=== PATIENT | male | born 1980 | race Caucasian/White ===

== ENCOUNTER → 2016-12-30 | Outpatient (CLI) | payer OTHER, MEDICAID ==
[2016-12-30 08:23] LABS: CHLORIDE,CL 104 mmol/L (98-110); SODIUM,NA 140 mmol/L (136-146)
== END ==
LOC: MW.CHFP 07:31
PROVIDERS: ATTEND Student in an Organized Health Care Education/Training Program
DX: Z00.00 Encounter for general adult medical examination without abnormal findings (principal); G40.909 Epilepsy, unspecified, not intractable, without status epilepticus
CPT/HCPCS: 36415; 80053; 80061; 80156

== ENCOUNTER 2023-01-01 15:04 | Inpatient (IN) | payer MEDICARE, MEDICAID ==
[2023-01-01] MEDS ORDERED: cefTRIAXone 1 GM in Sodium Chloride 0.9% 50 ML IV ONE (15:09)
[2023-01-01] MEDS ORDERED: Sodium Chloride 0.9% 1,000 ML IV SCH (15:15)
[2023-01-01 15:40] LABS: HEMATOCRIT 45.5 % (38.0-50.0); MEAN CORPUSCULAR HEMOGLOBIN 31.3 pg (27.0-32.0); MEAN CORPUSCULAR HGB CONC 35.2 g/dL (31.0-37.0); MEAN CORPUSCULAR VOLUME 88.9 fL (80.0-98.0); NRBC ABSOLUTE 0 K/uL; PLATELET COUNT,PLT 261 K/uL (150-400); RED BLOOD CELL COUNT 5.12 M/uL (4.50-5.90); WHITE BLOOD CELL COUNT,WBC 28.52 K/uL (4.0-11.0)
[2023-01-01 16:03] LABS: BAND ABSOLUTE MAN 0.6; BAND PERCENT MAN 2 %; LYMPHOCYTES ABSOLUTE MAN 1.4 (0.6-2.4); LYMPHOCYTES PERCENT MAN 5 % (16.0-40.0); MONOCYTES ABSOLUTE MAN 2.9 (0.0-0.8); MONOCYTES PERCENT MAN 10 % (0.0-15.0); SEG NEUTROPHILS ABSOLUTE MAN 23.7 (1.4-5.7); SEG NEUTROPHILS PERCENT MAN 83 % (48.0-80.0)
[2023-01-01 16:08] LABS: A/G RATIO 0.7 (0.9-1.6); ALANINE AMINOTRANSFERASE,ALT 46 IU/L (14-63); ALBUMIN 3.3 g/dL (3.4-5.0); ALKALINE PHOSPHATASE 163 U/L (46-116); ASPARTATE AMNIOTRANSFERASE,AST 35 IU/L (15-37); BILIRUBIN TOTAL 1.2 mg/dL (0.2-1.0); BLOOD UREA NITROGEN,BUN 20 mg/dL (7.0-18.0); CALCIUM 8.8 mg/dL (8.5-10.1); CARBON DIOXIDE,CO2 26.7 mmol/L (21.0-32.0); CHLORIDE,CL 97 mmol/L (98-107); CREATININE 1.5 mg/dL (0.8-1.3); GLUCOSE RANDOM 118 mg/dL (74-106); POTASSIUM,K 3.9 mmol/L (3.5-5.1); PROTEIN TOTAL,TP 8.2 g/dL (6.4-8.2); SODIUM,NA 136 mmol/L (136-148)
[2023-01-01 16:10] LABS: ESTIMATED GFR 59 mL/min (>60)
[2023-01-01 16:16] LABS: LACTIC ACID 1.6 mmol/L (0.4-2.0)
[2023-01-01] MEDS ORDERED: fentaNYL 100 MCG/2 ML SDV ONE (18:05)
[2023-01-01] MEDS ORDERED: Iopamidol 755 MG/ML 500 ML Multipack Bottle IVPUSH ONE (18:28)
[2023-01-01] MEDS ORDERED: Sodium Chloride 0.9% 1,000 ML IV ONE (18:40)
[2023-01-01] MEDS ORDERED: carBAMazepine 100 MG Tab.Chew PO ONE (19:06)
[2023-01-01] MEDS: Enoxaparin 40 MG/0.4 ML Syringe SUBCUT SCH (19:06)
[2023-01-01] MEDS: carBAMazepine 100 MG Tab.Chew PO SCH (22:31)
[2023-01-02] MEDS ORDERED: Sodium Chloride 0.9% 500 ML IV ONE (00:23)
[2023-01-02] MEDS: Acetaminophen 500 MG Tab PO PRN ×2 (00:35→13:42)
[2023-01-02] MEDS: Sodium Chloride 0.9% 1,000 ML IV SCH ×2 (00:35→11:24)
[2023-01-02 06:12] LABS: COLOR,URINE YELLOW; GLUCOSE,URINE NEGATIVE (NEGATIVE); KETONES,URINE 15 mg/dL (NEGATIVE); LEUKOCYTE ESTERASE,URINE NEGATIVE (NEGATIVE); NITRITE,URINE NEGATIVE (NEGATIVE); OCCULT BLOOD,URINE NEGATIVE (NEGATIVE); PH,URINE 5.5 (5.0-8.0); PROTEIN,URINE 30 mg/dL (NEGATIVE)
[2023-01-02 06:15] LABS: APPEARANCE,URINE HAZY; BILIRUBIN,URINE SMALL (NEGATIVE)
[2023-01-02 06:27] LABS: BASOPHILS PERCENT AUTO 0.1 % (0.0-1.5); EOSINOPHILS ABSOLUTE AUTO 0.1 K/uL (0.0-0.7); EOSINOPHILS PERCENT AUTO 0.3 % (0.0-7.0); HEMATOCRIT 38.2 % (38.0-50.0); LYMPHOCYTES ABSOLUTE AUTO 2.3 K/uL (0.6-2.4); LYMPHOCYTES PERCENT AUTO 10.7 % (16.0-40.0); MEAN CORPUSCULAR HEMOGLOBIN 30.6 pg (27.0-32.0); MEAN CORPUSCULAR VOLUME 89.9 fL (80.0-98.0); MONOCYTES ABSOLUTE AUTO 2.1 K/uL (0.0-0.8); MONOCYTES PERCENT AUTO 9.9 % (0.0-15.0); NEUTROPHILS ABSOLUTE AUTO 16.8 K/uL (1.4-5.7); NRBC ABSOLUTE 0 K/uL; PLATELET COUNT,PLT 199 K/uL (150-400); RED BLOOD CELL COUNT 4.25 M/uL (4.50-5.90); WHITE BLOOD CELL COUNT,WBC 21.28 K/uL (4.0-11.0)
[2023-01-02] MEDS: carBAMazepine 100 MG Tab.Chew PO SCH ×4 (06:30→20:04)
[2023-01-02 06:46] LABS: CALCIUM 7.6 mg/dL (8.5-10.1); CARBON DIOXIDE,CO2 27.4 mmol/L (21.0-32.0); CREATININE 1.2 mg/dL (0.8-1.3); EST CRCL DRUG DOSING (CG) 61.93 mL/min; POTASSIUM,K 3.6 mmol/L (3.5-5.1)
[2023-01-02 06:48] LABS: AMORPHOUS SEDIMENT,URINE FEW (NEGATIVE); RBC,URINE 0-1 (0-2/HPF); WBC,URINE 0-3 (0-5/HPF)
[2023-01-02] MEDS ORDERED: Calcium Gluconate 10% 1 GM/10 ML SDV IVPUSH ONE (07:01)
[2023-01-02] MEDS ORDERED: Calcium Gluconate 1 GM in Sodium Chloride 0.9% 100 ML IV ONE (07:30)
[2023-01-02] MEDS ORDERED: Pantoprazole 40 MG Tab.CR PO SCH (09:00)
[2023-01-02] MEDS: Pantoprazole 40 MG in Sodium Chloride 0.9% 10 ML IVPUSH SCH (09:43)
[2023-01-02] MEDS: cefTRIAXone 1 GM in Sodium Chloride 0.9% 50 ML IV SCH (16:06)
[2023-01-02] MEDS: Enoxaparin 40 MG/0.4 ML Syringe SUBCUT SCH (18:16)
[2023-01-03] MEDS: Sodium Chloride 0.9% 1,000 ML IV SCH (00:10)
[2023-01-03 06:01] LABS: BASOPHILS PERCENT AUTO 0.2 % (0.0-1.5); EOSINOPHILS ABSOLUTE AUTO 0.2 K/uL (0.0-0.7); EOSINOPHILS PERCENT AUTO 1.1 % (0.0-7.0); HEMATOCRIT 34.5 % (38.0-50.0); HEMOGLOBIN 11.6 g/dL (13.0-17.0); LYMPHOCYTES ABSOLUTE AUTO 2.4 K/uL (0.6-2.4); LYMPHOCYTES PERCENT AUTO 14.2 % (16.0-40.0); MEAN CORPUSCULAR HEMOGLOBIN 30.3 pg (27.0-32.0); MEAN CORPUSCULAR HGB CONC 33.6 g/dL (31.0-37.0); MEAN CORPUSCULAR VOLUME 90.1 fL (80.0-98.0); MONOCYTES ABSOLUTE AUTO 1.3 K/uL (0.0-0.8); MONOCYTES PERCENT AUTO 7.4 % (0.0-15.0); NEUTROPHILS ABSOLUTE AUTO 13.1 K/uL (1.4-5.7); NEUTROPHILS PERCENT AUTO 77.1 % (48.0-80.0); NRBC ABSOLUTE 0 K/uL; PLATELET COUNT,PLT 207 K/uL (150-400); RED BLOOD CELL COUNT 3.83 M/uL (4.50-5.90); WHITE BLOOD CELL COUNT,WBC 17.06 K/uL (4.0-11.0)
[2023-01-03 06:21] LABS: CALCIUM 7.7 mg/dL (8.5-10.1); CARBON DIOXIDE,CO2 24.8 mmol/L (21.0-32.0); CREATININE 0.9 mg/dL (0.8-1.3); EST CRCL DRUG DOSING (CG) 82.57 mL/min; POTASSIUM,K 3.5 mmol/L (3.5-5.1)
[2023-01-03] MEDS: carBAMazepine 100 MG Tab.Chew PO SCH ×3 (09:05→20:13)
[2023-01-03] MEDS: Pantoprazole 40 MG in Sodium Chloride 0.9% 10 ML IVPUSH SCH (09:07)
[2023-01-03] MEDS: VANCOmycin 1.75 GM/350 ML 1.75 GM in Premix Bag 1 BAG IV SCH (14:00)
[2023-01-03] MEDS: cefTRIAXone 1 GM in Sodium Chloride 0.9% 50 ML IV SCH (16:15)
[2023-01-03] MEDS: Enoxaparin 40 MG/0.4 ML Syringe SUBCUT SCH (17:53)
[2023-01-04] MEDS: VANCOmycin 1.75 GM/350 ML 1.75 GM in Premix Bag 1 BAG IV SCH (02:54)
[2023-01-04 05:56] LABS: HEMOGLOBIN 11.6 g/dL (13.0-17.0); MEAN CORPUSCULAR HEMOGLOBIN 30.1 pg (27.0-32.0); MEAN CORPUSCULAR HGB CONC 33.1 g/dL (31.0-37.0); MEAN CORPUSCULAR VOLUME 90.7 fL (80.0-98.0); MEAN PLATELET VOLUME 10.4 fL (7.40-12.00); RED BLOOD CELL COUNT 3.86 M/uL (4.50-5.90); WHITE BLOOD CELL COUNT,WBC 12.73 K/uL (4.0-11.0)
[2023-01-04] MEDS: Pantoprazole 40 MG in Sodium Chloride 0.9% 10 ML IVPUSH SCH (08:34)
[2023-01-04] MEDS: carBAMazepine 100 MG Tab.Chew PO SCH ×3 (08:35→20:10)
[2023-01-04] MEDS: VANCOmycin 1.5 GM/300 ML 1.5 GM in Premix Bag 1 BAG IV SCH (14:06)
[2023-01-04] MEDS: cefTRIAXone 1 GM in Sodium Chloride 0.9% 50 ML IV SCH (16:15)
[2023-01-04] MEDS: Enoxaparin 40 MG/0.4 ML Syringe SUBCUT SCH (18:39)
[2023-01-05] MEDS: VANCOmycin 1.5 GM/300 ML 1.5 GM in Premix Bag 1 BAG IV SCH ×2 (02:04→15:11)
[2023-01-05 05:50] LABS: BASOPHILS PERCENT AUTO 0.3 % (0.0-1.5); EOSINOPHILS ABSOLUTE AUTO 0.4 K/uL (0.0-0.7); EOSINOPHILS PERCENT AUTO 4.3 % (0.0-7.0); HEMATOCRIT 38.3 % (38.0-50.0); HEMOGLOBIN 12.7 g/dL (13.0-17.0); LYMPHOCYTES PERCENT AUTO 19.4 % (16.0-40.0); MEAN CORPUSCULAR HEMOGLOBIN 29.9 pg (27.0-32.0); MEAN CORPUSCULAR HGB CONC 33.2 g/dL (31.0-37.0); MEAN CORPUSCULAR VOLUME 90.1 fL (80.0-98.0); MONOCYTES ABSOLUTE AUTO 0.8 K/uL (0.0-0.8); MONOCYTES PERCENT AUTO 7.7 % (0.0-15.0); NEUTROPHILS PERCENT AUTO 68.3 % (48.0-80.0); NRBC ABSOLUTE 0 K/uL; PLATELET COUNT,PLT 317 K/uL (150-400); RED BLOOD CELL COUNT 4.25 M/uL (4.50-5.90); WHITE BLOOD CELL COUNT,WBC 10.17 K/uL (4.0-11.0)
[2023-01-05 06:11] LABS: CALCIUM 8.2 mg/dL (8.5-10.1); CARBON DIOXIDE,CO2 28.2 mmol/L (21.0-32.0); CREATININE 0.8 mg/dL (0.8-1.3); EST CRCL DRUG DOSING (CG) 92.9 mL/min; POTASSIUM,K 3.7 mmol/L (3.5-5.1)
[2023-01-05] MEDS: carBAMazepine 100 MG Tab.Chew PO SCH ×3 (08:22→19:47)
[2023-01-05] MEDS: Pantoprazole 40 MG in Sodium Chloride 0.9% 10 ML IVPUSH SCH (08:22)
[2023-01-05] MEDS: cefTRIAXone 1 GM in Sodium Chloride 0.9% 50 ML IV SCH ×2 (17:33→17:34)
[2023-01-05] MEDS: Enoxaparin 40 MG/0.4 ML Syringe SUBCUT SCH (18:30)
[2023-01-06] MEDS: VANCOmycin 1.5 GM/300 ML 1.5 GM in Premix Bag 1 BAG IV SCH ×2 (02:11→14:40)
[2023-01-06 05:47] LABS: BASOPHILS PERCENT AUTO 0.3 % (0.0-1.5); EOSINOPHILS ABSOLUTE AUTO 0.4 K/uL (0.0-0.7); EOSINOPHILS PERCENT AUTO 4.2 % (0.0-7.0); HEMATOCRIT 39.7 % (38.0-50.0); HEMOGLOBIN 13.3 g/dL (13.0-17.0); LYMPHOCYTES ABSOLUTE AUTO 1.8 K/uL (0.6-2.4); LYMPHOCYTES PERCENT AUTO 19.5 % (16.0-40.0); MEAN CORPUSCULAR HEMOGLOBIN 30.4 pg (27.0-32.0); MEAN CORPUSCULAR HGB CONC 33.5 g/dL (31.0-37.0); MEAN CORPUSCULAR VOLUME 90.8 fL (80.0-98.0); MONOCYTES PERCENT AUTO 11.5 % (0.0-15.0); NEUTROPHILS ABSOLUTE AUTO 5.9 K/uL (1.4-5.7); NEUTROPHILS PERCENT AUTO 64.5 % (48.0-80.0); NRBC ABSOLUTE 0 K/uL; PLATELET COUNT,PLT 349 K/uL (150-400); RED BLOOD CELL COUNT 4.37 M/uL (4.50-5.90); WHITE BLOOD CELL COUNT,WBC 9.07 K/uL (4.0-11.0)
[2023-01-06 06:05] LABS: CALCIUM 8.5 mg/dL (8.5-10.1); CARBON DIOXIDE,CO2 27.3 mmol/L (21.0-32.0); CREATININE 0.9 mg/dL (0.8-1.3); EST CRCL DRUG DOSING (CG) 82.57 mL/min; POTASSIUM,K 4.1 mmol/L (3.5-5.1)
[2023-01-06] MEDS: carBAMazepine 100 MG Tab.Chew PO SCH ×3 (08:38→19:46)
[2023-01-06] MEDS: Pantoprazole 40 MG in Sodium Chloride 0.9% 10 ML IVPUSH SCH (08:39)
[2023-01-06] MEDS: cefTRIAXone 1 GM in Sodium Chloride 0.9% 50 ML IV SCH (17:10)
[2023-01-06] MEDS: Enoxaparin 40 MG/0.4 ML Syringe SUBCUT SCH (18:03)
[2023-01-07] MEDS: VANCOmycin 1.5 GM/300 ML 1.5 GM in Premix Bag 1 BAG IV SCH (02:14)
[2023-01-07 05:49] LABS: BASOPHILS ABSOLUTE AUTO 0.1 K/uL (0.0-0.1); BASOPHILS PERCENT AUTO 0.7 % (0.0-1.5); EOSINOPHILS ABSOLUTE AUTO 0.3 K/uL (0.0-0.7); HEMATOCRIT 41.8 % (38.0-50.0); HEMOGLOBIN 13.9 g/dL (13.0-17.0); LYMPHOCYTES ABSOLUTE AUTO 1.8 K/uL (0.6-2.4); LYMPHOCYTES PERCENT AUTO 24.1 % (16.0-40.0); MEAN CORPUSCULAR HGB CONC 33.3 g/dL (31.0-37.0); MEAN CORPUSCULAR VOLUME 90.3 fL (80.0-98.0); MONOCYTES ABSOLUTE AUTO 0.6 K/uL (0.0-0.8); MONOCYTES PERCENT AUTO 8.2 % (0.0-15.0); NEUTROPHILS ABSOLUTE AUTO 4.6 K/uL (1.4-5.7); NRBC ABSOLUTE 0 K/uL; PLATELET COUNT,PLT 397 K/uL (150-400); RED BLOOD CELL COUNT 4.63 M/uL (4.50-5.90); WHITE BLOOD CELL COUNT,WBC 7.29 K/uL (4.0-11.0)
[2023-01-07 06:09] LABS: CALCIUM 8.7 mg/dL (8.5-10.1); CARBON DIOXIDE,CO2 28.5 mmol/L (21.0-32.0); CREATININE 0.9 mg/dL (0.8-1.3); EST CRCL DRUG DOSING (CG) 82.57 mL/min; POTASSIUM,K 4.1 mmol/L (3.5-5.1)
[2023-01-07] MEDS: carBAMazepine 100 MG Tab.Chew PO SCH ×3 (09:22→19:36)
[2023-01-07] MEDS: Pantoprazole 40 MG in Sodium Chloride 0.9% 10 ML IVPUSH SCH (09:23)
[2023-01-07] MEDS: VANCOmycin 1.25 GM/250 ML 1.25 GM in Premix Bag 1 BAG IV SCH (14:06)
[2023-01-07] MEDS: cefTRIAXone 1 GM in Sodium Chloride 0.9% 50 ML IV SCH (17:03)
[2023-01-07] MEDS: Enoxaparin 40 MG/0.4 ML Syringe SUBCUT SCH (19:04)
[2023-01-08] MEDS: VANCOmycin 1.25 GM/250 ML 1.25 GM in Premix Bag 1 BAG IV SCH ×2 (03:14→14:46)
[2023-01-08 05:43] LABS: HEMATOCRIT 42.4 % (38.0-50.0); HEMOGLOBIN 14.3 g/dL (13.0-17.0); MEAN CORPUSCULAR HEMOGLOBIN 30.8 pg (27.0-32.0); MEAN CORPUSCULAR HGB CONC 33.7 g/dL (31.0-37.0); MEAN CORPUSCULAR VOLUME 91.2 fL (80.0-98.0); PLATELET COUNT,PLT 411 K/uL (150-400); RED BLOOD CELL COUNT 4.65 M/uL (4.50-5.90); WHITE BLOOD CELL COUNT,WBC 7.53 K/uL (4.0-11.0)
[2023-01-08 06:08] LABS: CALCIUM 8.7 mg/dL (8.5-10.1); CARBON DIOXIDE,CO2 27.3 mmol/L (21.0-32.0); EST CRCL DRUG DOSING (CG) 74.32 mL/min; POTASSIUM,K 4.1 mmol/L (3.5-5.1)
[2023-01-08 06:15] LABS: BAND ABSOLUTE MAN 0.5; BAND PERCENT MAN 6 %; EOSINOPHILS ABSOLUTE MAN 0.4 (0.0-0.7); EOSINOPHILS PERCENT MAN 5 % (0.0-7.0); LYMPHOCYTES ABSOLUTE MAN 2.1 (0.6-2.4); LYMPHOCYTES PERCENT MAN 28 % (16.0-40.0); MONOCYTES ABSOLUTE MAN 0.6 (0.0-0.8); MONOCYTES PERCENT MAN 8 % (0.0-15.0); SEG NEUTROPHILS PERCENT MAN 53 % (48.0-80.0)
[2023-01-08] MEDS: carBAMazepine 100 MG Tab.Chew PO SCH ×3 (08:17→20:14)
[2023-01-08] MEDS ORDERED: Pantoprazole 40 MG Vial ONE (08:51)
[2023-01-08] MEDS: Pantoprazole 40 MG in Sodium Chloride 0.9% 10 ML IVPUSH SCH (08:56)
[2023-01-08] MEDS ORDERED: ceFAZolin 1 GM Vial ONE (17:15)
[2023-01-08] MEDS ORDERED: Bupivacaine 0.5% 30 ML SDV ONE (17:15)
[2023-01-08] MEDS: cefTRIAXone 1 GM in Sodium Chloride 0.9% 50 ML IV SCH (17:16)
[2023-01-08] MEDS ORDERED: Albuterol 0.083% 2.5 MG/3 ML Neb Soln NEB PRN (17:33)
[2023-01-08] MEDS ORDERED: Morphine 2 MG/ML SYRINGE IVPUSH PRN (17:33)
[2023-01-08] MEDS ORDERED: droPERidol 5 MG/2 ML SDV IVPUSH PRN (17:33)
[2023-01-08] MEDS ORDERED: fentaNYL 50 MCG/ML SDV IVPUSH PRN (17:33)
[2023-01-08] MEDS ORDERED: HYDROmorphone 1 MG/ML Syringe IVPUSH PRN (17:33)
[2023-01-08] MEDS ORDERED: Naloxone 0.4 MG/ML SDV IVPUSH PRN (17:33)
[2023-01-08] MEDS ORDERED: Ondansetron 4 MG/2 ML SDV IVPUSH PRN (17:33)
[2023-01-08] MEDS ORDERED: Metoclopramide 10 MG/2 ML SDV IVPUSH PRN (17:33)
[2023-01-08] MEDS ORDERED: Dexamethasone 4 MG/ML 5 ML MDV ONE (17:39)
[2023-01-08] MEDS ORDERED: Sugammadex Sodium 200 MG/2 ML VIAL ONE (17:39)
[2023-01-08] MEDS ORDERED: fentaNYL 100 MCG/2 ML SDV ONE (17:39)
[2023-01-08] MEDS ORDERED: Water For Injection, Sterile 20 ML ONE (17:39)
[2023-01-08] MEDS ORDERED: Lidocaine 2% 5 ML SDV ONE (17:39)
[2023-01-08] MEDS ORDERED: Rocuronium Bromide 50 MG/5 ML Syringe ONE (17:39)
[2023-01-08] MEDS ORDERED: Dexmedetomidine 200 MCG/2 ML SDV ONE (17:39)
[2023-01-08] MEDS ORDERED: Propofol 200 MG/20 ML SDV ONE (17:39)
[2023-01-08] MEDS ORDERED: Famotidine 20 MG/2 ML SDV ONE (17:50)
[2023-01-08] MEDS ORDERED: Phenylephrine HCl 0.5 MG/5 ML AMP ONE (18:16)
[2023-01-08] MEDS: Enoxaparin 40 MG/0.4 ML Syringe SUBCUT SCH (19:12)
[2023-01-09] MEDS: VANCOmycin 1.25 GM/250 ML 1.25 GM in Premix Bag 1 BAG IV SCH (03:41)
[2023-01-09 05:41] LABS: BASOPHILS PERCENT AUTO 0.3 % (0.0-1.5); EOSINOPHILS PERCENT AUTO 0.4 % (0.0-7.0); HEMATOCRIT 40.8 % (38.0-50.0); HEMOGLOBIN 13.8 g/dL (13.0-17.0); LYMPHOCYTES ABSOLUTE AUTO 1.5 K/uL (0.6-2.4); LYMPHOCYTES PERCENT AUTO 14.6 % (16.0-40.0); MEAN CORPUSCULAR HEMOGLOBIN 30.3 pg (27.0-32.0); MEAN CORPUSCULAR HGB CONC 33.8 g/dL (31.0-37.0); MEAN CORPUSCULAR VOLUME 89.7 fL (80.0-98.0); MONOCYTES PERCENT AUTO 9.8 % (0.0-15.0); NEUTROPHILS ABSOLUTE AUTO 7.5 K/uL (1.4-5.7); NEUTROPHILS PERCENT AUTO 74.9 % (48.0-80.0); NRBC ABSOLUTE 0 K/uL; PLATELET COUNT,PLT 435 K/uL (150-400); RED BLOOD CELL COUNT 4.55 M/uL (4.50-5.90); WHITE BLOOD CELL COUNT,WBC 10.05 K/uL (4.0-11.0)
[2023-01-09 05:59] LABS: CALCIUM 8.6 mg/dL (8.5-10.1); CARBON DIOXIDE,CO2 28.9 mmol/L (21.0-32.0); EST CRCL DRUG DOSING (CG) 74.32 mL/min; POTASSIUM,K 4.3 mmol/L (3.5-5.1)
[2023-01-09] MEDS ORDERED: HYDROmorphone 1 MG/ML Syringe IVPUSH ONE (07:49)
[2023-01-09] MEDS: Pantoprazole 40 MG in Sodium Chloride 0.9% 10 ML IVPUSH SCH (08:05)
[2023-01-09] MEDS: carBAMazepine 100 MG Tab.Chew PO SCH (08:19)
== END 2023-01-09 11:10 | disposition home or self-care (01) | DRG 603 ==
LOC: MW.ED 15:04 → MW.MS 19:02
PROVIDERS: ADMIT Internal Medicine; ATTEND Internal Medicine
PROC: 0H98XZZ Drainage of Buttock Skin, External Approach (ICD-10-PCS; principal; 2023-01-01)
DX: L03.317 Cellulitis of buttock (principal); N17.9 Acute kidney failure, unspecified; E83.51 Hypocalcemia; L02.31 Cutaneous abscess of buttock; F84.0 Autistic disorder
CPT/HCPCS: 36415 ×2; 74177; 80048; 80053; 83605; 85025 ×2; 87040 ×2; 96365; 96366; 96367; 99284; J0696; J3370; J3490; J7030; J7050; Q9967; 76881-26-LT; 76881-LT; 80202; 81001; 85027; 87070; 87075; 87077; 87186; 87205; 99213; A9270-GY; C9113; J0612; J0690; J1100; J1170; J1650; J2370; J2704; J3010